=== PATIENT | male | born 2000 | race Two or more races ===

== ENCOUNTER 2018-08-08 17:28 | Emergency (ER) | payer MEDICAID, OTHER ==
[~2018-08-08] VITALS: Ht 167.6 cm; Wt 56.7 kg
[2018-08-08] MEDS ORDERED: SEROQUEL25 MG ORAL (17:36)
--- NOTE | 2018-08-08 17:54 | NUR ---
ED Nurse Note: PT WALKED IN TO ER TODAY FROM HOME. AOX4. PT STATES HE IS HERE FOR PSYCHIATRIC EVALUATION. PT DENIES SI/HI BUT STATES HE IS HAVING DIFFICULTY WITH ADJUSTMENTS. PT STATES HE IS CURRENTLY TAKING SEROQUEL FOR ADJUSTMENT DISORDER PRESCRIBED BY PSYCHIATRIST. DR SHELDON AT BEDSIDE FOR MALIKA.
[2018-08-08 17:55] VITALS: BP 122/74
--- NOTE | 2018-08-08 18:40 | NUR ---
ED Nurse Note: PT SITTING PEACEFULLY IN CHAIR IN NAD. AOX4. [facility] FOR [facility] EXPLAINED AND GIVEN TO PT. PT VERBALIZES UNDERSTANDING AND STATES HE WILL HEAD THERE AFTER D/C. DISCHARGE PAPERWORKE XPLAINED TO PT. PT VERBALIZES UNDERSTANDING AND ALL QUESTIONS ANSWERED. DISCHARGE PAPERWORK AND REFERRAL GIVEN TO PT AND ID WRISTBAND REMOVED. PT WALKED OUT OF ER WITH STEADY GAIT AND ALL BELONGINGS.
[2018-08-08 18:42] VITALS: BP 126/74
--- NOTE | 2018-08-08 18:43 | Emergency Room Report ---
History of Present Illness General Chief Complaint: General Complaint Source: Patient Present Illness HPI Patient presents with request of having further psychiatric consultation he reports that several years ago he was diagnosed with a behavioral disorder He was on Seroquel for some time however has not been on that medicine Denies any homicidal or suicidal thoughts denies any auditory or visual hallucinations He feels that he has difficulty performing daily activities Patient reports that he took an [employer] to our facility denies any other medical complaints as far as weakness denies any headache Denies any palpitations Allergies: Coded Allergies: No Known Allergies (Unverified , 08/08/18) Patient History Past Medical History: see triage record Pertinent Family History: none Reviewed Nursing Documentation: PMH: Agreed; PSxH: Agreed Nursing Documentation-PMH Past Medical History: No History, Except For History Of Psychiatric Problem: Yes Review of Systems All Other Systems: negative except mentioned in HPI Physical Exam Vital Signs Date Time Temp Pulse Resp B/P (MAP) Pulse Ox O2 Delivery O2 Flow Rate FiO2 08/08/18 17:33 97.5 104 20 127/75 (92) 95 Room Air Sp02 EP Interpretation: reviewed, normal General Appearance: well appearing, no apparent distress Head: normocephalic, atraumatic Eyes: bilateral eye PERRL, bilateral eye EOMI ENT: hearing grossly normal, normal pharynx, TMs + canals normal, uvula midline Neck: full range of motion, supple, no meningismus, no bony tend Respiratory: lungs clear, normal breath sounds, no rhonchi, no respiratory distress, no retraction, no accessory muscle use Cardiovascular #1: normal peripheral pulses, regular rate, rhythm, no edema, no gallop, no JVD, no murmur Gastrointestinal: normal bowel sounds, non tender, soft, no mass, no organomegaly, non-distended, no guarding, no hernia, no pulsatile mass, no rebound Genitourinary: no CVA tenderness Musculoskeletal: normal inspection Neurologic: oriented x3, responsive, 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, motor strength/ tone normal, sensory intact Psychiatric: mood/affect normal Skin: normal color, no rash, warm/dry, palpation normal Lymphatic: normal inspection, no adenopathy Medical Decision Making Diagnostic Impression: Primary Impression: medical screening evaluation ER Course Patient here requesting to have further psychiatric consultation Denies any homicidal suicidal thoughts denies any auditory or visual hallucinations Patient does not meet psychiatric hold 5150 criteria Attempts are made to contact [facility] and other psychiatric facility for voluntary transfer however There is no availability Patient is reliable simply would like to have further, evaluation patient is provided with outpatient resources and will follow closely Labs Test 08/08/18 18:20 Urine Opiates Screen Negative (NEGATIVE) Urine Barbiturates Screen Negative (NEGATIVE) Phencyclidine (PCP) Screen Negative (NEGATIVE) Urine Amphetamines Screen Negative (NEGATIVE) Urine Benzodiazepines Screen Negative (NEGATIVE) Urine Cocaine Screen Negative (NEGATIVE) Urine Marijuana (THC) Screen Negative (NEGATIVE) Last Vital Signs Date Time Temp Pulse Resp B/P (MAP) Pulse Ox O2 Delivery O2 Flow Rate FiO2 08/08/18 17:55 94 18 Room Air 08/08/18 17:55 97.9 122/74 98 Status: improved Disposition: HOME, SELF-CARE Condition: Stable Referrals: [facility],REFERRING (PCP) Patient Instructions: Medical Screening Exam Additional Instructions: you have not met criteria for psychiatric hold. You have been provided with several outpatient resources to follo up with Ihsan Garza DO Aug 08, 2018 18:43
== END 2018-08-08 18:42 | disposition home or self-care (01) ==
LOC: EMR 18:16
DX: R46.89 Other symptoms and signs involving appearance and behavior (principal)
CPT/HCPCS: 80307; 99283